=== PATIENT | male | born 1975 | race Caucasian/White ===

== ENCOUNTER 2024-02-26 12:33 | Emergency (ER) | payer OTHER, SELFPAY ==
--- NOTE | ~2024-02-26 | XR_ITS ---
EXAMINATION: XR chest 1V portable DATE: 02/26/2024 13:48 INDICATION: Fever. TECHNIQUE: A single frontal view of the chest was obtained. COMPARISON: None. FINDINGS: There is no pneumonia, pleural effusion, or pneumothorax. The heart size is normal. IMPRESSION: 1. No acute cardiopulmonary disease. Reviewed, dictated and finalized at location A.
--- NOTE | ~2024-02-26 | CT_ITS ---
EXAMINATION: CT soft tissue neck w con DATE: 02/26/2024 15:18 INDICATION: Sore throat. Abscess. TECHNIQUE: Computed tomography (CT) of the neck was performed with 75 mL Omnipaque-350 intravenous co ntrast. Automated exposure control and iterative reconstruction technique were employed. The dose-raul gth product was 572.07 mGy-cm. COMPARISON: None FINDINGS: There is soft tissue swelling of the bilateral palatine tonsils and of the intervening irregular. No tonsillar/peritonsillar abscess. Retropharyngeal soft tissues in the lingual tonsils are unremarkable . There are mildly enlarged bilateral level 2 lymph nodes which are likely reactive. Bilateral paroti d and submandibular glands are normal and symmetric. Epiglottis and area gallbladder folds are normal . Visualized upper lungs are clear. Visualized superior mediastinum is unremarkable with normal calib er aortic arch. Orbits, paranasal sinuses and mastoid air cells are normal. Moderate lower cervical s pondylosis. IMPRESSION: 1. Swelling of the bilateral palatine tonsils consistent with tonsillitis without evident abscess. 2. Likely reactive bilateral level 2 jugular chain lymphadenopathy. Reviewed, dictated and finalized at location A. IMPRESSION: 1. Swelling of the bilateral palatine tonsils consistent with tonsillitis witho ut evident abscess. 2. Likely reactive bilateral level 2 jugular chain lymphadenopathy.
[2024-02-26 12:51] VITALS: BP 148/103; PULSE 95; RESP 23; TEMP 39.3; O2SAT 97
--- NOTE | 2024-02-26 13:41 | ED.GENADULT ---
HPI - General Adult General Chief complaint: Unspecified Stated complaint: possible tonsiler absess Time Seen by Provider: 02/26/24 13:09 Source: patient and RN notes reviewed Mode of arrival: EMS Limitations: other (patient difficult historian) History of Present Illness HPI narrative: This is a 48 year old male previously healthy who presents for evaluation of fever. PAtient was refered to ER from [facility] for evaluation of possible tonsillar abscess . Triage reports patient had sore throat for 7 days and fever. He states to me that he has pain all over. He denies vomiting, diarrhea, urinary complaints. He states he feels better and he is not taking any medication for his symptoms. Related Data Allergies Allergy/AdvReac Type Severity Reaction Status Date / Time No Known Allergies Allergy Verified 02/26/24 13:44 Review of Systems Constitutional: Constitutional: Reports fever(s), Reports lethargy and Reports weakness ENT: Reports sore throat Cardiovascular: Cardiovascular: Denies syncope, Denies rapid heart rate, Denies irregular heart rhythm, Denies leg edema and Denies dyspnea Respiratory: Respiratory: Denies chest congestion, Denies hemoptysis, Denies excessive phlegm production and Denies dyspnea Gastrointestinal: Gastrointestinal: Denies hematochezia, Denies diarrhea and Denies vomiting Genitourinary: Genitourinary: Denies hematuria, Denies dysuria, Denies penile discharge and Denies testicular pain Musculoskeletal: Musculoskeletal: Reports myalgias, Denies joint swelling, Denies loss of height and Denies muscle weakness Neurologic: Denies syncope, Denies focal weakness and Denies weakness PMFSH Past Medical History Medical History (Updated 02/26/24 @ 15:47 by Shivani Hartley MD) Patient denies medical problems Social History Social History (Updated 02/26/24 @ 13:44 by Shivani Hartley MD) Smoking status: Never smoker Exam Narrative: GENERAL: well-nourished, and in no acute distress. patient does not seems to feel weel HEAD: Normocephalic, atraumatic EYES: PERRLA and EOMI, conjunctiva clear without discharge EARS: TM's clear bilaterally without erythema or dullness NOSE: Nares clear, no rhinorrhea or epistaxis THROAT:Mucous membranes moist, Oropharynx normal without exudate. there is pharyngeal erythema NECK: Supple, without lymphadenopathy or mass RESPIRATORY: No respiratory distress, Airway patent, Respirations non-labored, Clear to auscultation without rales, rhonchi or wheeze HEART: Regular rate and rhythm. No murmur heard. Normal peripheral pulses. ABDOMEN: Soft, nontender, nondistended, normal active bowel sounds. No masses. No rebound or guarding, No organomegaly. EXTREMITIES: No edema, normal strength with full range of motion. SKIN: Warm, dry, normal color without rash NEURO: Alert and oriented x3. CN 2-12 grossly intact. No focal deficits. PSYCH: Normal mood and affect. Course Reevaluation(s) Reevaluation #1: PATient states he feels much better. temperature 99. I discussed cT showing tonsillitis. I discussed plan to order blood culture, discharge on oral antibiotics and return precautions. Date: 02/26/24 Time: 15:45 Vital Signs Vital signs: Vital Signs Temperature 102.7 F H 02/26/24 12:51 Pulse Rate 95 02/26/24 12:51 Respiratory Rate 23 H 02/26/24 12:51 Blood Pressure 148/103 H 02/26/24 12:51 Pulse Oximetry 97 02/26/24 12:51 Temperature 98.0 F 02/26/24 16:33 Pulse Rate 76 02/26/24 16:33 Respiratory Rate 16 02/26/24 16:33 Blood Pressure 140/68 02/26/24 16:33 Pulse Oximetry 100 02/26/24 16:33 Medical Decision Making Differential Diagnosis Differential Diagnosis: viral infection, tonsillar abscess. sepsis, bacteremia,dehydration. Vital Signs Vital Signs: Vital Signs Temperature 102.7 F H 02/26/24 12:51 Pulse Rate 95 02/26/24 12:51 Respiratory Rate 23 H 02/26/24 12:51 Blood Pressure 148/103 H 02/26/24
[2024-02-26] MEDS: KETOROLAC 30 MG/ML VIAL (*BKC) IV PUSH (13:45)
[2024-02-26] MEDS: LACTATED RINGERS 1,000 ML 999 ML IV CONT (13:49)
[2024-02-26 14:02] VITALS: BP 158/79; PULSE 88; RESP 19; O2SAT 100
[2024-02-26 14:06] LABS: Basophils Percent Auto 0.2 % (0.2-1.2); Hematocrit 48.1 % (42.0-52.0); Hemoglobin 16.8 g/dL (14.0-18.0); Immature Granulocyte Absolute 0.03 K/mm3 (0.00-0.031); Immature Granulocyte Percent A 0.3 % (0-0.5); Lymphocytes Percent Auto 8.4 % (18.3-44.2); Mean Corpuscular HGB Conc 34.9 g/dl (32-36); Mean Corpuscular Hemoglobin 32.4 pg (26-34); Mean Corpuscular Volume 92.9 fl (80-100); Mean Platelet Volume 9.7 fl (7.4-10.4); Monocytes Absolute Auto 1.2 K/mm3 (0.1-0.6); Monocytes Percent Auto 12.5 % (2.6-8.5); Neutrophils Absolute Auto 7.5 K/mm3 (1.3-6.7); Neutrophils Percent Auto 78.6 % (45.5-73.1); Platelet Count Result 190 k/mm3 (150-375); Red Blood Count 5.18 M/mm3 (4.6-6.20); Red Cell Distribution Width 13.2 % (11.5-14.5); White Blood Count 9.6 K/mm3 (4.5-10.0)
[2024-02-26 14:18] LABS: Alanine Aminotransferase 20 U/L (6-50); Albumin Level 4.7 g/dL (3.5-5.1); Alkaline Phosphatase 46 U/L (38-126); Anion Gap 9 mmol/L (4-12); Aspartate Amino Transferase 28 U/L (17-59); Bilirubin,Total 1.2 mg/dL (0.2-1.3); Blood Urea Nitrogen 9 mg/dL (9-20); Calcium 9.4 mg/dL (8.4-10.2); Carbon Dioxide 25 mmol/L (22-30); Chloride 100 mmol/L (98-107); Estimated CRCL calculation 82 ml/min; Estimated Glomerular Filt Rate > 60; Glucose 93 mg/dL (65-110); Potassium 3.8 mmol/L (3.4-5.0); Sodium 134 mmol/L (137-145)
[2024-02-26 14:21] LABS: Lactic Acid Reflex 1.6 mmol/L (0.7-2.0)
[2024-02-26 14:32] LABS: Strep Group A RT-PCR NOT DETECTED (Negative)
[2024-02-26 14:43] LABS: Influenza A QL RT-PCR Negative (Negative); Influenza B QL RT-PCR Negative (Negative); RSV RNA, RT-PCR Negative (Negative); SARS-CoV-2 RNA PCR Negative (Negative)
[2024-02-26 15:05] LABS: Appearance Urine Clear (Clear); Bacteria Urine None Seen /hpf; Bilirubin Urine Negative (Negative); Blood Urine Non-Hemolyzed Trace (Negative); Color Urine Yellow (Yellow); Glucose Urine UA Negative (Negative); Ketones Urine 2+ mg/dL (Negative); Leukocyte Esterase Ur Negative LEU/UL (Negative); Nitrate Urine Negative (Negative); Non Pathogenic Casts 0-2; Protein Urine Trace mg/dL (Negative); Specific Grav Ur 1.016 (1.001-1.035); Squamous Epithelial Cell Urine None Seen /hpf (Few); WBC Urine 0-5 /hpf (0-3); pH Urine 8.5 (5.0-9.0)
[2024-02-26 15:06] LABS: Add Urine Microscopic? YES
[2024-02-26 16:33] VITALS: BP 140/68; PULSE 76; RESP 16; TEMP 36.7; O2SAT 100
== END 2024-02-26 16:34 | disposition home or self-care (01) ==
PROVIDERS: Emergency Provider General Practice
DX: J03.80 Acute tonsillitis due to other specified organisms (principal); Z20.822 Contact with and (suspected) exposure to COVID-19
CPT/HCPCS: 36415; 70491; 71045; 80053; 81001; 83605; 85025; 87040; 87637; 87651; 96361; 96365; 96375; 99284; J0696; J1885; J7120; Q9967